=== PATIENT | female | born 1980 | race Caucasian/White ===

== ENCOUNTER → 2022-03-05 14:27 | Outpatient (CLI) | payer MEDICAID, SELFPAY ==
[2022-03-05 18:31] LABS: Basophils # 0.2 K/mm3 (0-0.2); Basophils % 1.9 % (0.1-2.0); Eosinophils # 0.5 K/mm3 (0.0-0.4); Eosinophils % 6.2 % (0.1-12.0); Hematocrit 44.5 % (37.0-47.0); Hemoglobin 14.1 g/dL (12.2-16.2); Lymphocytes # 1.9 K/mm3 (0.7-4.5); Lymphocytes % 24.1 % (10-50); Mean Corpuscular HGB Conc 31.6 g/dL (31.8-35.4); Mean Corpuscular Volume 94.9 fl (81-99); Mean Platelet Volume 8.2 fl (7.4-10.4); Monocytes # 0.5 K/mm3 (0.1-1.0); Monocytes % 6.8 % (1.7-9.3); Neutrophils # 4.9 K/mm3 (1.8-7.8); Neutrophils % 61.1 % (37.0-80.0); Platelet Count 515 K/mm3 (142-424); Red Blood Count 4.69 M/mm3 (4.20-5.40); Red Cell Distribution Width 13.5 % (11.5-17.5)
[2022-03-05 19:25] LABS: Alanine Aminotransferase 14 U/L (12-78); Albumin Level 3.9 g/dl (3.5-5.0); Alkaline Phosphatase 62 U/L (38-126); Anion Gap 17.5 mEq/L (5-15); Aspartate Amino Transferase 18 U/L (14-36); Bilirubin,Total 0.2 mg/dl (0.2-1.3); Blood Urea Nitrogen 11 mg/dl (7-17); Calcium 8.9 mg/dl (8.4-10.2); Carbon Dioxide 21 mmol/L (22.0-30.0); Chloride 102 mmol/L (98-107); Chol/HDL Ratio 4.3 (1-3.5); Cholesterol 251 mg/dl (140-200); Estimated Glomerular Filt Rate 92 ml/min (>60); GFR (African American) 111 ML/MIN (>60); Glucose 213 mg/dl (74-100); HDL Cholesterol 59 mg/dl (40-60); Potassium 4.5 mmoL/L (3.5-5.1); Sodium 136 mmol/L (136-145); Total Protein,Serum 5.9 g/dl (6.3-8.2); Triglycerides 153 mg/dl (30-150); VLDL Cholesterol 31 mg/dL (0-40)
[2022-03-05 19:49] LABS: Direct LDL Cholesterol 156.07 mg/dL (100-129)
[2022-03-05 19:55] LABS: Thyroid Stimulating Hormone 3.47 uIU/mL (0.465-4.68)
[2022-03-05 20:00] LABS: 25-OH Vitamin D, Total < 12.8 ng/mL (30-100)
[2022-03-05 20:02] LABS: Hemoglobin A1C 9.4 % (4.0-6.0)
== END ==
PROVIDERS: PCP Nurse Practitioner Family; Visit Provider Nurse Practitioner Family
DX: E11.9 Type 2 diabetes mellitus without complications (principal); I10 Essential (primary) hypertension; R53.83 Other fatigue; E55.9 Vitamin D deficiency, unspecified
CPT/HCPCS: 80053; 80061; 82306; 83036; 84443; 85025

== ENCOUNTER → 2022-03-20 07:08 | Outpatient (CLI) | payer MEDICAID, SELFPAY ==
[2022-03-20 08:25] VITALS: PULSE 67; PULSE 69
--- NOTE | 2022-03-20 08:53 | US_ITS ---
FINAL REPORT CLINICAL HISTORY: Cyst-- palp mass rt submand area FINDINGS: ULTRASOUND SOFT TISSUE NECK Sonographic images of the soft tissues in the right submandibular region were obtained. There is a heterogeneous, hypoechoic, ovoid mass correlating with the palpable abnormality. This mass measures 4.0 cm in greatest dimension and appears to be encapsulated. There is no increased flow within the mass. IMPRESSION: 4.0 cm mass in the right submandibular region. Neoplasia is not excluded. CT neck with contrast is recommended for further evaluation. Reviewed, Interpreted and Dictated by Jeff Galvan MD Transcribed by Gabrielle Birch Authenticated and [facility]
== END ==
PROVIDERS: PCP Nurse Practitioner Family; Visit Provider Nurse Practitioner Family
DX: J44.9 Chronic obstructive pulmonary disease, unspecified (principal); L98.9 Disorder of the skin and subcutaneous tissue, unspecified
CPT/HCPCS: 76536; 94060; 94640; 94727; 94729

== ENCOUNTER 2022-04-03 07:02 | Emergency (ER) | payer MEDICAID, SELFPAY ==
[2022-04-03 07:04] VITALS: BP 148/59; PULSE 81; RESP 20; TEMP 36.8; O2SAT 100; BMI 21.0
--- NOTE | 2022-04-03 07:16 | XR_ITS ---
PROCEDURE INFORMATION: Exam: XR Chest Exam date and time: 04/03/2022 7:16 AM Age: 41 years old Clinical indication: Smoker's cough TECHNIQUE: Imaging protocol: Radiologic exam of the chest. Views: 2 views. COMPARISON: No relevant prior studies available. FINDINGS: Lungs: The lungs are hyperinflated. No focal consolidation. Pleural spaces: Unremarkable. No pleural effusion. No pneumothorax. Heart/Mediastinum: Unremarkable. No cardiomegaly. Bones/joints: Unremarkable. IMPRESSION: Hyperinflated lungs which may reflect COPD, no focal consolidation.
[2022-04-03 07:18] LABS: Coronavirus 19, PCR Not Detected (NotDetected); Influenza B, PCR Not Detected (NotDetected)
[2022-04-03 07:21] LABS: Basophils # 0.1 K/mm3 (0-0.2); Basophils % 1.6 % (0.1-2.0); Eosinophils # 0.5 K/mm3 (0.0-0.4); Eosinophils % 5.8 % (0.1-12.0); Hemoglobin 14.5 g/dL (12.2-16.2); Lymphocytes # 1.3 K/mm3 (0.7-4.5); Lymphocytes % 16.4 % (10-50); Mean Corpuscular HGB Conc 32.9 g/dL (31.8-35.4); Mean Corpuscular Hemoglobin 30.3 pg (27.0-31.2); Mean Platelet Volume 7.7 fl (7.4-10.4); Monocytes # 0.4 K/mm3 (0.1-1.0); Monocytes % 5.5 % (1.7-9.3); Neutrophils # 5.7 K/mm3 (1.8-7.8); Neutrophils % 70.6 % (37.0-80.0); Platelet Count 484 K/mm3 (142-424); Red Blood Count 4.78 M/mm3 (4.20-5.40); Red Cell Distribution Width 13.5 % (11.5-17.5)
--- NOTE | 2022-04-03 07:23 | PC.NURSE ---
pt to radiology
[2022-04-03 07:27] LABS: Alanine Aminotransferase 18 U/L (12-78); Albumin Level 4.4 g/dl (3.5-5.0); Albumin/Globulin Ratio 1.9 (1.1-1.8); Alkaline Phosphatase 82 U/L (38-126); Anion Gap 19.5 mEq/L (5-15); Aspartate Amino Transferase 24 U/L (14-36); Bilirubin,Total 0.4 mg/dl (0.2-1.3); Blood Urea Nitrogen 6 mg/dl (7-17); Calcium 9.4 mg/dl (8.4-10.2); Carbon Dioxide 24 mmol/L (22.0-30.0); Chloride 96 mmol/L (98-107); Creatinine Clearance Estimated 104 mL/min (50-200); Estimated Glomerular Filt Rate 110 ml/min (>60); GFR (African American) 133 ML/MIN (>60); Globulin 2.3 g/dL (1.3-3.2); Glucose 225 mg/dl (74-100); Potassium 3.5 mmoL/L (3.5-5.1); Sodium 136 mmol/L (136-145); Total Protein,Serum 6.7 g/dl (6.3-8.2)
[2022-04-03 07:38] LABS: Influenza A, PCR Detected (NotDetected)
[2022-04-03 07:55] VITALS: BP 137/89; PULSE 74; O2SAT 100
--- NOTE | 2022-04-03 07:56 | HMH.EDURI ---
Discharge Plan Disposition Patient Disposition: Home, Self-Care Prescriptions Prescriptions: New oseltamivir [Tamiflu] 75 mg capsule 75 mg PO BID 5 Days Qty: 10 0RF No Action fluticasone propion-salmeterol [Advair Diskus] 100-50 mcg/dose blister with device 1 inh inhalation BID Qty: 60 2RF albuterol sulfate 90 mcg/actuation aerosol powdr breath activated 2 inh inhalation Q4-6H PRN (Reason: shortness of breath or wheezing) Qty: 1 2RF Ozempic 0.25 mg or 0.5 mg(2 mg/1.5 mL) pen injector 0.25 mg SQ WEEKLY Qty: 1.5 2RF Rx Instructions: for 4 doses simvastatin 10 mg tablet 10 mg PO HS Qty: 30 2RF aspirin [Adult Low Dose Aspirin] 81 mg tablet,delayed release (DR/EC) 81 mg PO DAILY Qty: 30 2RF (DME) blood-glucose meter [Blood Glucose Monitoring] Kit See Rx Instructions .ROUTE .MEDSUPPLY Qty: 1 0RF Rx Instructions: Twice daily (DME) Blood Glucose Test Strip See Rx Instructions .ROUTE .MEDSUPPLY Qty: 50 2RF Rx Instructions: Twice daily (DME) lancets 30 gauge misc See Rx Instructions .ROUTE .MEDSUPPLY Qty: 200 1RF Rx Instructions: twice daily cholecalciferol (vitamin D3) 1,250 mcg (50,000 unit) tablet 1,250 mcg PO WEEKLY Qty: 7 2RF cholecalciferol (vitamin D3) 50 mcg (2,000 unit) capsule 50 mcg PO DAILY Qty: 30 4RF Referrals Follow up/Referrals: Drake Carias MD [Primary Care Provider] - See instructions Clinical Impressions Clinical Impression: Influenza, Diabetes mellitus Discharge ED Provider: Drake Carias URI/Sore Throat HPI General Chief Complaint: Upper Respiratory Infection Stated Complaint: Cough, Sneezing, Runny nose Time Seen by Provider: 04/03/22 07:57 Mode of Arrival: EMS Source of Information: Patient and Medical Record Limitations: No Limitations Description of Symptoms (Recalled from ER Triage Doc. by RN): pt to ed c/o cough, runny eyes and congestion x3 days History of Present Illness HPI Narrative: uri sx and cough over the last few days Complaint: cough Onset (ago): day(s) Duration: intermittent Severity: moderate Able to tolerate fluids by mouth: Yes Context: sick contacts Associated symptoms: denies other symptoms Treatments prior to arrival: acetaminophen and ibuprofen Related Data Previous Rx's Medication Instructions Recorded albuterol sulfate 90 mcg/actuation 2 inh inhalation Q4-6H PRN 03/05/22 breath activated powder inhaler shortness of breath or wheezing #1 ea fluticasone 100 mcg-salmeterol 50 1 inh inhalation BID #60 ea 03/05/22 mcg/dose blistr powdr for inhalation (Advair Diskus) aspirin 81 mg tablet,delayed 81 mg PO DAILY #30 tabs 03/07/22 release (Adult Low Dose Aspirin) blood sugar diagnostic (Blood #50 ea 03/07/22 Glucose Test strips) blood-glucose meter (Blood Glucose #1 ea 03/07/22 Monitoring kit) cholecalciferol (vitamin D3) 1,250 1,250 mcg PO WEEKLY #7 tabs 03/07/22 mcg (50,000 unit) tablet cholecalciferol (vitamin D3) 50 50 mcg PO DAILY #30 caps 03/07/22 mcg (2,000 unit) capsule lancets 30 gauge #200 ea 03/07/22 simvastatin 10 mg tablet 10 mg PO HS #30 tabs 03/07/22 semaglutide 0.25 mg or 0.5 mg (2 0.25 mg (0.2 mL) SQ WEEKLY #1.5 mL 03/17/22 mg/1.5 mL) subcutaneous pen injector (Ozempic) oseltamivir 75 mg capsule (Tamiflu) 75 mg PO BID 5 days #10 caps 04/03/22 Allergies Allergy/AdvReac Type Severity Reaction Status Date / Time No Known Allergies Allergy Verified 03/05/22 13:08 [facility] Social History (Updated 03/17/22 @ 19:32 by ALEN Brooks) Smoking Status: Never smoker alcohol intake: never current occupational status: employed Travel in the last 8 weeks: None ROS Obtained: Yes All systems reviewed & no additional complaints except as documented Physical Exam General General appearance: alert Head Head exam: normocephalic Eye Eye exam: Present PERRL and EOMI ENT ENT exam: Present mucous membranes moist Neck
[2022-04-03 08:00] LABS: Acetone, Serum (Rapid) None Detected (None Detect)
[2022-04-03 08:01] VITALS: BP 131/89; PULSE 78; O2SAT 100
[2022-04-03 09:14] VITALS: BP 132/80; PULSE 72; RESP 20; TEMP 36.8; O2SAT 100
== END 2022-04-03 09:21 | disposition home or self-care (01) ==
PROVIDERS: Emergency Provider Emergency Medicine; PCP Emergency Medicine
DX: J10.1 Influenza due to other identified influenza virus with other respiratory manifestations (principal); R06.02 Shortness of breath; Z20.822 Contact with and (suspected) exposure to COVID-19; I27.20 Pulmonary hypertension, unspecified; J41.8 Mixed simple and mucopurulent chronic bronchitis; F17.210 Nicotine dependence, cigarettes, uncomplicated; Z79.51 Long term (current) use of inhaled steroids; Z79.82 Long term (current) use of aspirin; Z79.899 Other long term (current) drug therapy; Z82.5 Family history of asthma and other chronic lower respiratory diseases
CPT/HCPCS: 71046; 80053; 82009; 85025; 96360; 99284; C9803; U0003; U0005

== ENCOUNTER → 2022-07-08 23:18 | Outpatient (CLI) | payer MEDICAID, SELFPAY ==
[2022-07-08 17:55] LABS: Basophils # 0.1 K/mm3 (0-0.2); Basophils % 1.8 % (0.1-2.0); Eosinophils # 0.3 K/mm3 (0.0-0.4); Eosinophils % 3.8 % (0.1-12.0); Hematocrit 49.5 % (37.0-47.0); Hemoglobin 15.5 g/dL (12.2-16.2); Lymphocytes # 1.6 K/mm3 (0.7-4.5); Lymphocytes % 20.4 % (10-50); Mean Corpuscular HGB Conc 31.3 g/dL (31.8-35.4); Mean Corpuscular Volume 95.9 fl (81-99); Mean Platelet Volume 9.3 fl (7.4-10.4); Monocytes # 0.4 K/mm3 (0.1-1.0); Monocytes % 4.5 % (1.7-9.3); Neutrophils # 5.3 K/mm3 (1.8-7.8); Neutrophils % 69.5 % (37.0-80.0); Platelet Count 551 K/mm3 (142-424); Red Blood Count 5.16 M/mm3 (4.20-5.40); Red Cell Distribution Width 13.9 % (11.5-17.5); White Blood Count 7.6 K/mm3 (4.8-10.8)
[2022-07-08 17:57] LABS: Chloride 101 mmol/L (98-107); Sodium 135 mmol/L (136-145)
[2022-07-08 17:58] LABS: Potassium 4.9 mmoL/L (3.5-5.1)
[2022-07-08 18:00] LABS: Alanine Aminotransferase 17 U/L (12-78); Albumin Level 4.7 g/dl (3.5-5.0); Alkaline Phosphatase 65 U/L (38-126); Anion Gap 19.9 mEq/L (5-15); Aspartate Amino Transferase 21 U/L (14-36); Bilirubin,Total 0.5 mg/dl (0.2-1.3); Blood Urea Nitrogen 12 mg/dl (7-17); Carbon Dioxide 19 mmol/L (22.0-30.0); Cholesterol 320 mg/dl (140-200); Estimated Glomerular Filt Rate 109 ml/min (>60); GFR (African American) 132 ML/MIN (>60); Globulin 2.3 g/dL (1.3-3.2); Triglycerides 145 mg/dl (30-150); VLDL Cholesterol 29 mg/dL (0-40)
[2022-07-08 18:01] LABS: Calcium 9.1 mg/dl (8.4-10.2); Chol/HDL Ratio 4.3 (1-3.5); Glucose 267 mg/dl (74-100); HDL Cholesterol 75 mg/dl (40-60)
[2022-07-08 18:18] LABS: Hemoglobin A1C 13.2 % (4.0-6.0)
== END ==
PROVIDERS: PCP Student in an Organized Health Care Education/Training Program; Visit Provider Student in an Organized Health Care Education/Training Program
DX: E11.9 Type 2 diabetes mellitus without complications (principal); Z79.4 Long term (current) use of insulin; Z79.899 Other long term (current) drug therapy
CPT/HCPCS: 80053; 80061; 82043; 83036; 84443; 85025

== ENCOUNTER 2022-07-09 22:40 | Emergency (ER) | payer MEDICAID, SELFPAY ==
[2022-07-09 22:49] VITALS: BP 132/67; PULSE 81; RESP 18; TEMP 36.7; O2SAT 96; BMI 21.0
[2022-07-09 22:56] LABS: POC Glucose,Bedside 465 (70-110)
[2022-07-09 23:00] VITALS: BP 116/60; PULSE 70; O2SAT 95
[2022-07-09 23:05] LABS: Basophils # 0.1 K/mm3 (0-0.2); Basophils % 0.9 % (0.1-2.0); Eosinophils # 0.5 K/mm3 (0.0-0.4); Eosinophils % 6.6 % (0.1-12.0); Hematocrit 41.6 % (37.0-47.0); Hemoglobin 13.4 g/dL (12.2-16.2); Lymphocytes # 1.6 K/mm3 (0.7-4.5); Mean Corpuscular HGB Conc 32.1 g/dL (31.8-35.4); Mean Corpuscular Volume 93.6 fl (81-99); Monocytes # 0.3 K/mm3 (0.1-1.0); Monocytes % 4.5 % (1.7-9.3); Neutrophils # 4.3 K/mm3 (1.8-7.8); Neutrophils % 63.9 % (37.0-80.0); Platelet Count 462 K/mm3 (142-424); Red Blood Count 4.45 M/mm3 (4.20-5.40); Red Cell Distribution Width 14.1 % (11.5-17.5); White Blood Count 6.8 K/mm3 (4.8-10.8)
[2022-07-09 23:06] LABS: Chloride 98 mmol/L (98-107); Potassium 3.9 mmoL/L (3.5-5.1); Sodium 131 mmol/L (136-145)
[2022-07-09 23:09] LABS: Alanine Aminotransferase 16 U/L (12-78); Albumin Level 3.8 g/dl (3.5-5.0); Albumin/Globulin Ratio 1.7 (1.1-1.8); Alkaline Phosphatase 67 U/L (38-126); Anion Gap 12.9 mEq/L (5-15); Aspartate Amino Transferase 21 U/L (14-36); Bilirubin,Total 0.4 mg/dl (0.2-1.3); Blood Urea Nitrogen 13 mg/dl (7-17); Carbon Dioxide 24 mmol/L (22.0-30.0); Creatinine Clearance Estimated 85 mL/min (50-200); Estimated Glomerular Filt Rate 91 ml/min (>60); GFR (African American) 111 ML/MIN (>60); Globulin 2.3 g/dL (1.3-3.2); Total Protein,Serum 6.1 g/dl (6.3-8.2)
[2022-07-09 23:10] LABS: Calcium 8.6 mg/dl (8.4-10.2)
[2022-07-09 23:17] LABS: Acetone, Serum (Rapid) Small (None Detect)
[2022-07-09 23:18] LABS: Glucose 501 mg/dl (74-100)
--- NOTE | 2022-07-09 23:18 | PC.NURSE ---
Critical blood glucose of 501 called by Ivone in the lab. notified. order given for 5Units of IV insulin.
--- NOTE | 2022-07-09 23:23 | PC.NURSE ---
Rounded on pt. No needs or complaints voiced at this time. Call light within reach.
[2022-07-09 23:30] VITALS: BP 123/62; PULSE 74; O2SAT 96
--- NOTE | 2022-07-09 23:46 | PC.NURSE ---
Recheck blood glucose is 428.
[2022-07-09 23:52] LABS: POC Glucose,Bedside 428 (70-110)
--- NOTE | 2022-07-10 00:06 | HMH.EDGENADL ---
Discharge Plan Disposition Patient Disposition: Home, Self-Care Chief Complaint: Hyper/Hypoglycemia Prescriptions Prescriptions: No Action fluticasone propion-salmeterol [Advair Diskus] 500-50 mcg/dose blister with device 1 inh inhalation BID Qty: 180 3RF fluticasone propionate [Flonase Allergy Relief] 50 mcg/actuation spray,suspension 1 spray intranasal BID 90 Days Qty: 16 3RF Rx Instructions: administer into each nostril montelukast 10 mg tablet 10 mg PO DAILY 90 Days Qty: 90 3RF (DME) Blood Glucose Test Strip See Rx Instructions .ROUTE .MEDSUPPLY Qty: 50 2RF Rx Instructions: Twice daily (DME) lancets 30 gauge misc See Rx Instructions .ROUTE .MEDSUPPLY Qty: 200 1RF Rx Instructions: twice daily metformin 1,000 mg tablet,ER hannah.retention 24 hr 1,000 mg PO BID Qty: 60 2RF Jardiance 10 mg tablet 10 mg PO DAILY Qty: 30 2RF simvastatin 10 mg tablet 10 mg PO HS Qty: 30 2RF aspirin [Adult Low Dose Aspirin] 81 mg tablet,delayed release (DR/EC) 81 mg PO DAILY Qty: 30 2RF (DME) blood-glucose meter [Blood Glucose Monitoring] Kit See Rx Instructions .ROUTE .MEDSUPPLY Qty: 1 0RF Rx Instructions: Twice daily cholecalciferol (vitamin D3) 1,250 mcg (50,000 unit) tablet 1,250 mcg PO WEEKLY Qty: 7 2RF cholecalciferol (vitamin D3) 50 mcg (2,000 unit) capsule 50 mcg PO DAILY Qty: 30 4RF albuterol sulfate [Ventolin HFA] 90 mcg/actuation HFA aerosol inhaler See Rx Instructions .ROUTE .COMPLEX Qty: 18 1RF Dose Instruction: INHALE 2 PUFFS EVERY 4-6 HOURS NEEDED FOR SHORTNESS OF BREATH OR WHEEZING Rx Instructions: INHALE 2 PUFFS EVERY 4-6 HOURS NEEDED FOR SHORTNESS OF BREATH OR WHEEZING Referrals Follow up/Referrals: Jessica Noel PA [Primary Care Provider] - See instructions Clinical Impressions Clinical Impression: DKA, type 2, COPD mixed type, Diabetes mellitus, Mass of right side of neck, Tobacco use, Hyperlipidemia Instructions Patient Instructions: Type 2 Diabetes Discharge ED Provider: Aretha (ED)Drake General Adult HPI General Chief complaint: Hyper/Hypoglycemia Stated complaint: Hyperglycemia Time Seen by Provider: 07/10/22 00:06 Mode of Arrival: EMS Source of Information: Patient Limitations: No Limitations Description of Symptoms (Recalled from ER Triage Doc. by RN): Pt arrives via ems. Presents c c/o elevated blood glucose. States that on Thursday she was started on extended release Metformin and Jardiance. states that she had been taking ozempic but her last injection was 2 weeks ago. Reports adherance to a diabetic diet. States that she has been taking her blood glucose nightly and it has been trending in the 300's, however, tonight before bed it was over 500. Does report feeling slightly dizzy, which she says is typical when her blood glucose is elevated. History of Present Illness HPI narrative: pt with elevated glu and has started on meds as noted above -and had elevated glu Onset (ago): hour(s) Severity: moderate Related Data Previous Rx's Medication Instructions Recorded aspirin 81 mg tablet,delayed 81 mg PO DAILY #30 tabs 03/07/22 release (Adult Low Dose Aspirin) blood-glucose meter (Blood Glucose #1 ea 03/07/22 Monitoring kit) cholecalciferol (vitamin D3) 1,250 1,250 mcg PO WEEKLY #7 tabs 03/07/22 mcg (50,000 unit) tablet cholecalciferol (vitamin D3) 50 50 mcg PO DAILY #30 caps 03/07/22 mcg (2,000 unit) capsule simvastatin 10 mg tablet 10 mg PO HS #30 tabs 03/07/22 fluticasone 500 mcg-salmeterol 50 1 inh inhalation BID #180 ea 04/08/22 mcg/dose blistr powdr for inhalation (Advair Diskus) fluticasone propionate 50 1 spray intranasal BID 90 days #16 04/08/22 mcg/actuation nasal grams spray,suspension (Flonase Allergy Relief) montelukast 10 mg tablet 10 mg PO DAILY 90 days #90 tabs 04/08/22 albuterol sulfate 90 mcg/actuation See Rx Instructions .Route 06/12/22 aerosol i
--- NOTE | 2022-07-10 00:13 | PC.NURSE ---
Pt ambulatory to bathroom at this time. No other needs voiced.
--- NOTE | 2022-07-10 00:46 | PC.NURSE ---
Patient was counseled on her need to stay in the hospital over night. 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 Advised patient to follow up in the am with her pcp.
[2022-07-10 00:47] VITALS: BP 112/68; PULSE 75; RESP 18; TEMP 36.7; O2SAT 98
--- NOTE | 2022-07-10 01:07 | PC.NURSE ---
Called PD to see if they could transport pt to her home. They were able to ablige pt and Officer Sd here to transport pt.
[2022-07-11 11:31] LABS: C-Peptide 1.2 ng/mL (1.1-4.4)
== END 2022-07-10 01:10 | disposition home or self-care (01) ==
PROVIDERS: Emergency Provider Emergency Medicine; PCP Student in an Organized Health Care Education/Training Program
DX: E11.65 Type 2 diabetes mellitus with hyperglycemia (principal); J44.9 Chronic obstructive pulmonary disease, unspecified; R22.1 Localized swelling, mass and lump, neck; E78.5 Hyperlipidemia, unspecified; F17.210 Nicotine dependence, cigarettes, uncomplicated; J45.909 Unspecified asthma, uncomplicated; Z98.51 Tubal ligation status
CPT/HCPCS: 80053; 82009; 82962; 84681; 85025; 96361; 96374; 99285

== ENCOUNTER → 2022-08-11 09:49 | Outpatient (CLI) | payer MEDICAID, SELFPAY ==
--- NOTE | 2022-08-11 10:09 | XR_ITS ---
FINAL REPORT CLINICAL HISTORY: Right foot pain, bunion FINDINGS: RIGHT FOOT Three views demonstrate no acute fracture or dislocation. There is a minimal hallux valgus deformity. The joint spaces appear normal. Mild soft tissue swelling is noted over the medial aspect of the distal 1st metatarsal. IMPRESSION: Minimal hallux valgus deformity with mild soft tissue swelling over the medial aspect of the distal 1st metatarsal. Reviewed, Interpreted and Dictated by Jeff Galvan MD Transcribed by Gabrielle Birch Authenticated and [facility]
--- NOTE | 2022-08-11 10:09 | XR_ITS ---
FINAL REPORT CLINICAL HISTORY: Left foot pain, bunion FINDINGS: LEFT FOOT Three views demonstrate no acute fracture or dislocation. There is a minimal hallux valgus deformity. The joint spaces appear normal. Mild soft tissue swelling is noted over the medial aspect of the distal 1st metatarsal. IMPRESSION: Minimal hallux valgus deformity with mild soft tissue swelling over the medial aspect of the distal 1st metatarsal. Reviewed, Interpreted and Dictated by Jeff Galvan MD Transcribed by Gabrielle Birch Authenticated and [facility]
[2022-08-11 11:53] LABS: Anion Gap 12.3 mEq/L (5-15); Blood Urea Nitrogen 17 mg/dl (7-17); Carbon Dioxide 25 mmol/L (22.0-30.0); Chloride 100 mmol/L (98-107); Estimated Glomerular Filt Rate 135 ml/min (>60); GFR (African American) 163 ML/MIN (>60); Glucose 246 mg/dl (74-100); Potassium 5.3 mmoL/L (3.5-5.1); Sodium 132 mmol/L (136-145)
[2022-08-14 17:10] LABS: D001-IgE D pteronyssinus 0.52 kU/L (Class I); D002-IgE D farinae 0.65 kU/L (Class II); E001-IgE Cat Dander <0.10 kU/L (Class 0); E072-IgE Mouse Urine <0.10 kU/L (Class 0); G002-IgE Bermuda Grass 0.87 kU/L (Class II); G006-IgE Timothy Grass 0.81 kU/L (Class II); I006-IgE Cockroach, German 5.47 kU/L (Class IV); Immunoglobulin E, Total 103 IU/mL (6-495); M001-IgE Penicillium chrysogen <0.10 kU/L (Class 0); M002-IgE Cladosporium herbarum <0.10 kU/L (Class 0); M003-IgE Aspergillus fumigatus <0.10 kU/L (Class 0); M006-IgE Alternaria alternata <0.10 kU/L (Class 0); T001-IgE Maple/Box Elder 0.82 kU/L (Class II); T003-IgE Common Silver Birch 0.77 kU/L (Class II); T007-IgE Oak, White 0.79 kU/L (Class II); T008-IgE Elm, American 0.86 kU/L (Class II); T010-IgE Walnut 0.95 kU/L (Class II); T011-IgE Maple Leaf Sycamore 0.89 kU/L (Class II); T014-IgE Cottonwood 0.78 kU/L (Class II); T015-IgE Ash, White 0.92 kU/L (Class II); T022-IgE Pecan, Hickory 0.79 kU/L (Class II); T070-IgE White Mulberry 0.69 kU/L (Class II); W001-IgE Ragweed, Short 0.93 kU/L (Class II); W011-IgE Thistle, Russian 0.77 kU/L (Class II); W014-IgE Pigweed, Common 0.79 kU/L (Class II); W018-IgE Sheep Sorrel 0.86 kU/L (Class II)
[2022-08-15 18:08] LABS: Alpha-1-Antitrypsin 167 mg/dL (101-187)
== END ==
PROVIDERS: Internal Medicine Pulmonary Disease; PCP Student in an Organized Health Care Education/Training Program; Visit Provider Nurse Practitioner Family
DX: J30.9 Allergic rhinitis, unspecified (principal); E11.9 Type 2 diabetes mellitus without complications; M21.619 Bunion of unspecified foot; B35.1 Tinea unguium; Z79.4 Long term (current) use of insulin
CPT/HCPCS: 36415; 73630; 80048; 82103; 82104; 82785; 83036; 86003; 87220

== ENCOUNTER → 2022-08-11 17:04 | Outpatient (CLI) | payer MEDICAID, SELFPAY | PROVIDERS: Visit Provider Nurse Practitioner Family | DX: B35.1 Tinea unguium (principal) ==

== ENCOUNTER → 2022-08-20 13:12 | Outpatient (CLI) | payer MEDICAID, SELFPAY ==
--- NOTE | 2022-08-20 13:16 | US_ITS ---
FINAL REPORT CLINICAL HISTORY: CLAUDICATION,REST PAIN,DM,SMOKER,DECREASED SENESATION FINDINGS: ANKLE-BRACHIAL PRESSURE INDICES Pressure indices are as follows: RIGHT LOWER EXTREMITY: Ankle-brachial pressure index: 1.2 Comments: Normal LEFT LOWER EXTREMITY: Ankle-brachial pressure index: 1.1 Comments: Normal CONCLUSION: No evidence of significant obstructive peripheral vascular disease of the lower extremities Reviewed, Interpreted and Dictated by Fito Trevino III, MD Transcribed by Alice New Authenticated and [facility]
== END ==
PROVIDERS: PCP Student in an Organized Health Care Education/Training Program; Visit Provider Podiatrist
DX: R20.8 Other disturbances of skin sensation (principal); M79.606 Pain in leg, unspecified; R20.9 Unspecified disturbances of skin sensation; R23.9 Unspecified skin changes
CPT/HCPCS: 93923

== ENCOUNTER → 2022-10-02 23:32 | Outpatient (CLI) | payer MEDICAID, SELFPAY ==
[2022-10-02 18:22] LABS: Alanine Aminotransferase 17 U/L (12-78); Albumin Level 4.6 g/dl (3.5-5.0); Albumin/Globulin Ratio 2.1 (1.1-1.8); Alkaline Phosphatase 51 U/L (38-126); Anion Gap 18.5 mEq/L (5-15); Aspartate Amino Transferase 27 U/L (14-36); Bilirubin,Total 0.3 mg/dl (0.2-1.3); Blood Urea Nitrogen 14 mg/dl (7-17); Calcium 9.3 mg/dl (8.4-10.2); Carbon Dioxide 25 mmol/L (22.0-30.0); Chloride 97 mmol/L (98-107); Chol/HDL Ratio 2.3 (1-3.5); Cholesterol 253 mg/dl (140-200); Estimated Glomerular Filt Rate 91 ml/min (>60); GFR (African American) 111 ML/MIN (>60); Globulin 2.2 g/dL (1.3-3.2); Glucose 98 mg/dl (74-100); HDL Cholesterol 109 mg/dl (40-60); Potassium 4.5 mmoL/L (3.5-5.1); Sodium 136 mmol/L (136-145); Total Protein,Serum 6.8 g/dl (6.3-8.2); Triglycerides 59 mg/dl (30-150); VLDL Cholesterol 12 mg/dL (0-40)
[2022-10-02 18:23] LABS: Basophils # 0.1 K/mm3 (0-0.2); Basophils % 1.4 % (0.1-2.0); Eosinophils # 0.3 K/mm3 (0.0-0.4); Eosinophils % 4.5 % (0.1-12.0); Hematocrit 49.5 % (37.0-47.0); Hemoglobin 15.3 g/dL (12.2-16.2); Lymphocytes # 1.6 K/mm3 (0.7-4.5); Lymphocytes % 20.9 % (10-50); Mean Corpuscular Volume 96.9 fl (81-99); Mean Platelet Volume 8.9 fl (7.4-10.4); Monocytes # 0.4 K/mm3 (0.1-1.0); Monocytes % 5.7 % (1.7-9.3); Neutrophils # 5.1 K/mm3 (1.8-7.8); Neutrophils % 67.5 % (37.0-80.0); Platelet Count 600 K/mm3 (142-424); Red Blood Count 5.11 M/mm3 (4.20-5.40); Red Cell Distribution Width 13.9 % (11.5-17.5); White Blood Count 7.6 K/mm3 (4.8-10.8)
[2022-10-02 18:35] LABS: Direct LDL Cholesterol 141.41 mg/dL (100-129)
[2022-10-02 18:39] LABS: 25-OH Vitamin D, Total 44.9 ng/mL (30-100)
[2022-10-02 18:47] LABS: Hemoglobin A1C 9.6 % (4.0-6.0)
== END ==
PROVIDERS: PCP Student in an Organized Health Care Education/Training Program; Visit Provider Student in an Organized Health Care Education/Training Program
DX: Z13.21 Encounter for screening for nutritional disorder (principal); E55.9 Vitamin D deficiency, unspecified; E78.5 Hyperlipidemia, unspecified; E11.9 Type 2 diabetes mellitus without complications; Z79.4 Long term (current) use of insulin
CPT/HCPCS: 80053; 80061; 82306; 83036; 84443; 85025